=== PATIENT | male | born 1965 | race Two or more races ===

== ENCOUNTER 2022-11-25 16:12 | Inpatient (IN) ==
[2022-11-25 17:29] LABS: ABS Basophils 0.1 10^3/uL (0.0-0.1); ABS Eosinophils 0.1 10^3/uL (0.0-0.5); ABS Lymphocytes 1.3 10^3/uL (1.0-4.8); ABS Monocytes 0.8 10^3/uL (0.0-1.1); ABS Neutrophils 2.6 10^3/uL (1.5-7.6); ABS Nucleated RBC 0.01 10^3/ul; Eosinophil % 1.6 %; Hematocrit 42.8 % (38-53); Hemoglobin 14.8 g/dL (13.2-16.3); Lymphocyte % 26.5 %; Mean Corpuscular Hemoglobin 33.5 pg (27-33); Mean Corpuscular Hgb Conc 34.7 g/dL (31-36); Mean Corpuscular Volume 96.5 fL (80-97); Nucleated Red Blood Cells % 0.1 /100 WBC (0.0-0.4); Platelet Count 147 10^3/uL (150-450); Red Blood Count 4.43 10^6/uL (4.06-5.63); Red Cell Distribution Width 14.7 % (12-17); White Blood Count 4.7 10^3/uL (3.6-10.2)
[2022-11-25 17:47] LABS: ALT 32 U/L (7-52); AST 65 U/L (13-39); Albumin 3.6 g/dL (3.2-5.2); Alkaline Phosphatase 72 U/L (35-149); Anion Gap 4 mmol/L (2-16); Blood Urea Nitrogen 7 mg/dL (6-24); C Reactive Protein 2.88 mg/L (<8.01); CO2 Carbon Dioxide 33 mmol/L (22-32); Chloride 104 mmol/L (101-111); Creatinine, Serum 0.57 mg/dL (0.67-1.17); Globulin 3.5 g/dL (2-4); Glucose 104 mg/dL (70-100); Potassium 3.5 mmol/L (3.5-5.0); Sodium 141 mmol/L (135-145); Total Protein 7.1 g/dL (6.4-8.9); eGFR CKD-EPI 113.6 (>60)
[2022-11-25 17:53] LABS: High Sens Troponin Baseline 8 pg/mL (<20)
[2022-11-25] MEDS ORDERED: Albuterol/Ipratropium NEB.SOL (2.5/0.5 MG) 3 ML NEB.SOLN INH ONE (18:06)
[2022-11-25 19:19] LABS: High Sensitivity Troponin 1 Hr 8 pg/mL (<20)
[2022-11-25] MEDS ORDERED: methylPREDNISolone SOD SUCC 125 mg 2 ML VIAL IV ONE (19:29)
[2022-11-25] MEDS ORDERED: Albuterol/Ipratropium NEB.SOL (2.5/0.5 MG) 3 ML NEB.SOLN ONE (19:50)
[2022-11-25] MEDS ORDERED: Furosemide 40 mg/4 ml IV VIAL IV SLOW PU ONE (20:31)
[2022-11-25] MEDS ORDERED: Magnesium Sulfate 2 gm BAG 2 GM/50 ML BAG IVPB ONE (20:31)
[2022-11-25] MEDS ORDERED: Albuterol 2.5mg/3 ml (0.083%) NEB.SOLN INH ONE (20:31)
[2022-11-25] MEDS ORDERED: Iohexol 350 (CONTRAST) 500 ML MDV IV ONE (20:37)
[2022-11-25 21:13] LABS: Alcohol, S 118 mg/dL (<13)
[2022-11-25] MEDS ORDERED: LORazepam 2 mg VIAL 1 ml IV PUSH ONE (22:52)
[2022-11-25] MEDS ORDERED: Lorazepam PYXIS KEY PRN (22:52)
[2022-11-26] MEDS ORDERED: Thiamine 100 MG/ML 2 ml VIAL (200 mg) IM ONE (00:50)
[2022-11-26] MEDS ORDERED: Albuterol 2.5mg/3 ml (0.083%) NEB.SOLN INH PRN (00:52)
[2022-11-26] MEDS ORDERED: LORazepam 2 mg VIAL 1 ml IM SCH (01:00)
[2022-11-26 01:06] LABS: PCO2 Arterial 54 mmHg (35-45); PO2 Arterial 90 mmHg (80-100)
[2022-11-26 01:27] LABS: TSH Ultra Thyroid Stim Horm 0.91 mcIU/mL (0.34-5.60)
[2022-11-26 01:38] LABS: Folate > 20.00 ng/mL (5.90-24.80)
[2022-11-26 01:39] LABS: Vitamin B12 492 pg/mL (180-914)
[2022-11-26] MEDS ORDERED: Polyethylene Glycol 3350 17 GM PACKET PO PRN (02:04)
[2022-11-26] MEDS ORDERED: Senna TAB 8.6 mg TAB PO PRN (02:04)
[2022-11-26] MEDS: Enoxaparin 40 MG/0.4 ML SYR SUBCUT SCH (02:12)
[2022-11-26 06:18] LABS: PCO2 Arterial 60 mmHg (35-45); PO2 Arterial 87 mmHg (80-100)
[2022-11-26 06:30] LABS: ABS Lymphocytes 0.5 10^3/uL (1.0-4.8); ABS Monocytes 0.1 10^3/uL (0.0-1.1); ABS Neutrophils 3.2 10^3/uL (1.5-7.6); ABS Nucleated RBC 0.01 10^3/ul; Hematocrit 48.9 % (38-53); Lymphocyte % 12.9 %; Mean Corpuscular Hemoglobin 33.6 pg (27-33); Mean Corpuscular Hgb Conc 34.7 g/dL (31-36); Mean Corpuscular Volume 96.7 fL (80-97); Mean Platelet Volume 8.3 fL (7.5-11.2); Nucleated Red Blood Cells % 0.3 /100 WBC (0.0-0.4); Platelet Count 145 10^3/uL (150-450); Red Blood Count 5.05 10^6/uL (4.06-5.63); Red Cell Distribution Width 14.5 % (12-17); White Blood Count 3.8 10^3/uL (3.6-10.2)
[2022-11-26 07:10] LABS: Calcium 9.2 mg/dL (8.6-10.3); Creatinine, Serum 0.52 mg/dL (0.67-1.17); Magnesium 2.1 mg/dL (1.9-2.7); Potassium 3.7 mmol/L (3.5-5.0); eGFR CKD-EPI 116.8 (>60)
[2022-11-26] MEDS ORDERED: methylPREDNISolone SOD SUCC 40 mg/ml 1 ml VIAL IV SCH (09:00)
[2022-11-26] MEDS ORDERED: Thiamine 100 MG/ML 2 ml VIAL 500 MG in NS 0.9% 250 ml 250 ML IV ONE (09:03)
[2022-11-26] MEDS: Multivitamins/Minerals TAB PO SCH (09:51)
[2022-11-26 09:56] LABS: INR 1.18 (0.88-1.18)
[2022-11-26] MEDS: Albuterol 2.5mg/3 ml (0.083%) NEB.SOLN INH SCH ×2 (13:52→19:19)
[2022-11-27] MEDS: Albuterol 2.5mg/3 ml (0.083%) NEB.SOLN INH SCH ×2 (01:49→06:32)
[2022-11-27 05:47] LABS: ABS Lymphocytes 1.1 10^3/uL (1.0-4.8); ABS Monocytes 0.8 10^3/uL (0.0-1.1); ABS Neutrophils 8.1 10^3/uL (1.5-7.6); Eosinophil % 0.1 %; Hematocrit 48.7 % (38-53); Hemoglobin 16.3 g/dL (13.2-16.3); Lymphocyte % 11.3 %; Mean Corpuscular Hemoglobin 33.6 pg (27-33); Mean Corpuscular Hgb Conc 33.6 g/dL (31-36); Mean Platelet Volume 8.5 fL (7.5-11.2); Platelet Count 126 10^3/uL (150-450); Red Blood Count 4.86 10^6/uL (4.06-5.63); Red Cell Distribution Width 14.7 % (12-17); White Blood Count 10.1 10^3/uL (3.6-10.2)
[2022-11-27] MEDS: Multivitamins/Minerals TAB PO SCH (09:36)
[2022-11-27] MEDS: Enoxaparin 40 MG/0.4 ML SYR SUBCUT SCH (09:38)
[2022-11-27] MEDS ORDERED: Albuterol/Ipratropium NEB.SOL (2.5/0.5 MG) 3 ML NEB.SOLN INH PRN (11:27)
[2022-11-27] MEDS ORDERED: Albuterol 2.5mg/3 ml (0.083%) NEB.SOLN INH PRN (11:27)
[2022-11-27 17:07] LABS: Calcium 9.4 mg/dL (8.6-10.3); Creatinine, Serum 0.62 mg/dL (0.67-1.17); eGFR CKD-EPI 110.8 (>60)
[2022-11-27] MEDS ORDERED: Polyethyl Glycol/Propylene Gly OPHTH.SOLN BOTH EYES PRN (17:32)
[2022-11-28 07:33] LABS: ABS Basophils 0.1 10^3/uL (0.0-0.1); ABS Eosinophils 0.1 10^3/uL (0.0-0.5); ABS Lymphocytes 1.8 10^3/uL (1.0-4.8); ABS Monocytes 0.6 10^3/uL (0.0-1.1); ABS Nucleated RBC 0.01 10^3/ul; Hematocrit 46.6 % (38-53); Hemoglobin 15.9 g/dL (13.2-16.3); Lymphocyte % 18.5 %; Mean Corpuscular Hemoglobin 33.6 pg (27-33); Mean Corpuscular Hgb Conc 34.1 g/dL (31-36); Mean Corpuscular Volume 98.6 fL (80-97); Mean Platelet Volume 8.4 fL (7.5-11.2); Nucleated Red Blood Cells % 0.1 /100 WBC (0.0-0.4); Platelet Count 121 10^3/uL (150-450); Red Blood Count 4.72 10^6/uL (4.06-5.63); Red Cell Distribution Width 14.6 % (12-17); White Blood Count 9.6 10^3/uL (3.6-10.2)
[2022-11-28] MEDS: Multivitamins/Minerals TAB PO SCH (07:55)
[2022-11-28] MEDS: Enoxaparin 40 MG/0.4 ML SYR SUBCUT SCH (07:55)
[2022-11-28 08:25] LABS: Calcium 8.8 mg/dL (8.6-10.3); Creatinine, Serum 0.58 mg/dL (0.67-1.17); Magnesium 1.9 mg/dL (1.9-2.7); Potassium 3.6 mmol/L (3.5-5.0)
[2022-11-28 15:08] VITALS: BP 183/84
== END 2022-11-28 15:15 | disposition home or self-care (01) | DRG 190 ==
LOC: ED 16:12 → EDHOLD 16:12 → SUATTDRO 23:49 → EDHOLD 11-27 14:27 → SSU 11-27 15:21
PROVIDERS: ADMIT Student in an Organized Health Care Education/Training Program; ATTEND Internal Medicine